=== PATIENT | male | born 1980 ===

== ENCOUNTER 2019-01-07 06:13 | Emergency (ER) | payer OTHER ==
[~2019-01-07] VITALS: Ht 165.1 cm; Wt 93.0 kg
[~2019-01-07 06:13] MED LIST: ERYT.5TO BOTHEYES; Percocet 5-3251 EACH PO
== END 2019-01-07 07:45 | disposition home or self-care (01) ==
LOC: ER 06:13
DX: H60.91 Unspecified otitis externa, right ear (principal)
CPT/HCPCS: 99282